=== PATIENT | male | born 1970 | race Hispanic/Latino ===

== ENCOUNTER 2018-03-27 20:31 | Emergency (ER) | payer SELFPAY ==
--- NOTE | 2018-03-27 21:38 | ER ---
Nurse's Notes [facility] Name: Jeevan Killian Sr Age: 47 yrs Sex: Male : 1970 Arrival Date: 03/27/2018 Time: 20:32 Bed 30 Private MD: Diagnosis: Dental caries;Dental root caries Presentation: 03/27 20:36 Presenting complaint: Patient states: Right upper tooth pain after cap fell off 3 days aj ago. Transition of care: patient was not received from another setting of care. Onset of symptoms was March 24, 2018. Risk Assessment: Do you want to hurt yourself or someone else? Patient reports no desire to harm self or others. Initial Sepsis Screen: Does the patient meet any 2 criteria? No. Patient's initial sepsis screen is negative. Does the patient have a suspected source of infection? No. Patient's initial sepsis screen is negative. Care prior to arrival: Medication(s) given: Motrin, 800 mg. 20:36 Method Of Arrival: Ambulatory aj 20:36 Acuity: JOSE 5 aj Triage Assessment: 20:39 General: Appears in no apparent distress. comfortable, Behavior is calm, cooperative, aj appropriate for age. Pain: Complains of pain in upper right second molar. Neuro: Level of Consciousness is awake, alert, obeys commands, Oriented to person, place, time, situation, Appropriate for age. Respiratory: Airway is patent Respiratory effort is even, unlabored, Respiratory pattern is regular, symmetrical. Derm: Skin is intact, is healthy with good turgor, Skin is pink, warm \T\ dry. normal. Historical: - Allergies: 20:39 No Known Allergies; aj - Home Meds: 20:39 Metformin Oral [Active]; rosuvastatin oral oral [Active]; Lisinopril Oral [Active]; aj - PMHx: 20:39 Hypertension; Hyperlipidemia; Diabetes - NIDDM; aj - PSHx: 20:39 None; aj - Immunization history:: Adult Immunizations up to date. - Social history:: Smoking status: Patient uses tobacco products, smokes one-half pack cigarettes per day. - Ebola Screening: : Patient negative for fever greater than or equal to 101.5 degrees Fahrenheit, and additional compatible Ebola Virus Disease symptoms Patient denies exposure to infectious person Patient denies travel to an Ebola-affected area in the 21 days before illness onset No symptoms or risks identified at this time. - Family history:: not pertinent. Screenin:46 Abuse screen: Denies threats or abuse. Denies injuries from another. Nutritional rv screening: No deficits noted. Tuberculosis screening: No symptoms or risk factors identified. Fall Risk None identified. Assessment: 20:45 General: Appears in no apparent distress. comfortable, Behavior is calm, cooperative. rv Pain: Complains of pain in TOOTH[place]HE. Neuro: Level of Consciousness is awake, alert, obeys commands, Oriented to person, place, time, situation. Cardiovascular: Capillary refill < 3 seconds. Respiratory: Airway is patent. GI: No signs and/or symptoms were reported involving the gastrointestinal system. : No signs and/or symptoms were reported regarding the genitourinary system. EENT: No signs and/or symptoms were reported regarding the EENT system. Derm: Skin is intact. Musculoskeletal: No signs and/or symptoms reported regarding the musculoskeletal system. Vital Signs: 20:39 BP 148 / 90; Pulse 102; Resp 17; Temp 97.7; Pulse Ox 99% on R/A; Weight 115.67 kg; aj Height 5 ft. 9 in. (175.26 cm); 20:46 BP 145 / 94; Pulse 109; Pulse Ox 97% ; Pain 7/10; rv 20:39 Body Mass Index 37.66 (115.67 kg, 175.26 cm) aj ED Course: 20:32 Patient arrived in ED. ds1 20:37 Triage completed. aj 20:39 Arm band placed on right wrist. Patient placed in an exam room. aj 20:46 Patient has correct armband on for positive identification. Placed in gown. Bed in low rv position. Call light in reach. Side rails up X 1. Adult w/ patient. Pulse ox on. NIBP on. 21:22 Abraham Simpson MD is Attending Physician. ana 21:36 Efe Rodriguez DDS is Referral Physician. ana 21:46 No provider procedures requiring assistance completed. Patient did not have IV access rv during this emergency room visit. Administered Medications: 21:45 Drug: Clindamycin 300 mg Route: PO; rv 21:46 Follow up: Response: Medication administered at discharge. rv 21:45 Drug: Demerol 50 mg Route: IM; Site: left deltoid; rv 21:46 Follow up: Response: Medication administered at discharge. rv 21:45 Drug: Phenergan 25 mg Route: IM; Site: right deltoid; rv 21:45 Follow up: Response: Medication administered at discharge. rv Outcome: 21:37 Discharge ordered by . ana 21:46 Discharged to home ambulatory. rv 21:46 Condition: stable 21:46 Discharge instructions given to patient, Instructed on discharge instructions, follow up and referral plans. medication usage, Prescriptions given X 2. 21:47 Patient left the ED. rv Signatures: Brianna Mckee, RN RN Abraham Heller MD MD cha Sanford, Demi ds1 Romeo Mcgill RN RN rv
--- NOTE | 2018-03-27 21:38 | EDPHYS ---
Physician Documentation [facility] Name: Jeevan Killian Sr Age: 47 yrs Sex: Male : 1970 Arrival Date: 03/27/2018 Time: 20:32 Bed 30 Private MD: ED Physician Abraham Simpson HPI: 03/27 21:32 This 47 yrs old Male presents to ER via Ambulatory with complaints of Dental ana Pain. 21:32 The patient presents with broken tooth/teeth. The problem is located in the upper right ana second molar. Onset: The symptoms/episode began/occurred 2 day(s) ago. Modifying factors: The symptoms are alleviated by nothing, the symptoms are aggravated by chewing. Associated signs and symptoms: The patient has no apparent associated signs or symptoms. Severity of symptoms: At their worst the symptoms were moderate, in the emergency department the symptoms are unchanged. The patient has experienced similar episodes in the past, a few times. Historical: - Allergies: 20:39 No Known Allergies; aj - Home Meds: 20:39 Metformin Oral [Active]; rosuvastatin oral oral [Active]; Lisinopril Oral [Active]; aj - PMHx: 20:39 Hypertension; Hyperlipidemia; Diabetes - NIDDM; aj - PSHx: 20:39 None; aj - Immunization history:: Adult Immunizations up to date. - Social history:: Smoking status: Patient uses tobacco products, smokes one-half pack cigarettes per day. - Ebola Screening: : Patient negative for fever greater than or equal to 101.5 degrees Fahrenheit, and additional compatible Ebola Virus Disease symptoms Patient denies exposure to infectious person Patient denies travel to an Ebola-affected area in the 21 days before illness onset No symptoms or risks identified at this time. - Family history:: not pertinent. ROS: 21:32 Constitutional: Negative for fever, chills, and weight loss, Eyes: Negative for injury, aan pain, redness, and discharge, Neck: Negative for injury, pain, and swelling, Cardiovascular: Negative for chest pain, palpitations, and edema, Respiratory: Negative for shortness of breath, cough, wheezing, and pleuritic chest pain, Abdomen/GI: Negative for abdominal pain, nausea, vomiting, diarrhea, and constipation, Back: Negative for injury and pain, : Negative for injury, bleeding, discharge, and swelling, MS/Extremity: Negative for injury and deformity, Skin: Negative for injury, rash, and discoloration, Neuro: Negative for headache, weakness, numbness, tingling, and seizure, Psych: Negative for depression, anxiety, suicide ideation, homicidal ideation, and hallucinations, Allergy/Immunology: Negative for hives, rash, and allergies, Endocrine: Negative for neck swelling, polydipsia, polyuria, polyphagia, and marked weight changes, Hematologic/Lymphatic: Negative for swollen nodes, abnormal bleeding, and unusual bruising. 21:32 ENT: Positive for Teeth pain Exam: 21:32 Constitutional: This is a well developed, well nourished patient who is awake, alert, ana and in no acute distress. Head/Face: Normocephalic, atraumatic. Eyes: Pupils equal round and reactive to light, extra-ocular motions intact. Lids and lashes normal. Conjunctiva and sclera are non-icteric and not injected. Cornea within normal limits. Periorbital areas with no swelling, redness, or edema. Neck: Trachea midline, no thyromegaly or masses palpated, and no cervical lymphadenopathy. Supple, full range of motion without nuchal rigidity, or vertebral point tenderness. No Meningismus. Chest/axilla: Normal chest wall appearance and motion. Nontender with no deformity. No lesions are appreciated. Cardiovascular: Regular rate and rhythm with a normal S1 and S2. No gallops, murmurs, or rubs. Normal PMI, no JVD. No pulse deficits. Respiratory: Lungs have equal breath sounds bilaterally, clear to auscultation and percussion. No rales, rhonchi or wheezes noted. No increased work of breathing, no retractions or nasal flaring. Abdomen/GI: Soft, non-tender, with normal bowel sounds. No distension or tympany. No guarding or rebound. No evidence of tenderness throughout. Back: No spinal tenderness. No costovertebral tenderness. Full range of motion. Male : Normal genitalia with no discharge or lesions. Skin: Warm, dry with normal turgor. Normal color with no rashes, no lesions, and no evidence of cellulitis. MS/ Extremity: Pulses equal, no cyanosis. Neurovascular intact. Full, normal range of motion. Neuro: Awake and alert, GCS 15, oriented to person, place, time, and situation. Cranial nerves II-XII grossly intact. Motor strength 5/5 in all extremities. Sensory grossly intact. Cerebellar exam normal. Normal gait. Psych: Awake, alert, with orientation to person, place and time. Behavior, mood, and affect are within normal limits. 21:32 ENT: Mouth: Oral mucosa: moist, Gums: noted to have cellulitis, Tongue: is normal, Posterior pharynx: is normal, airway is patent, Tonsils: are normal in appearance, Uvula: normal, swelling, is not appreciated, erythema, is not appreciated, Dental exam: dental caries, that is moderate, specifically in the upper right first molar (#3). Vital Signs: 20:39 BP 148 / 90; Pulse 102; Resp 17; Temp 97.7; Pulse Ox 99% on R/A; Weight 115.67 kg; aj Height 5 ft. 9 in. (175.26 cm); 20:46 BP 145 / 94; Pulse 109; Pulse Ox 97% ; Pain 7/10; rv 20:39 Body Mass Index 37.66 (115.67 kg, 175.26 cm) aj MDM: 21:23 Patient medically screened. [facility] 21:36 Data reviewed: vital signs, nurses notes. ana Administered Medications: 21:45 Drug: Clindamycin 300 mg Route: PO; rv 21:46 Follow up: Response: Medication administered at discharge. rv 21:45 Drug: Demerol 50 mg Route: IM; Site: left deltoid; rv 21:46 Follow up: Response: Medication administered at discharge. rv 21:45 Drug: Phenergan 25 mg Route: IM; Site: right deltoid; rv 21:45 Follow up: Response: Medication administered at discharge. rv Disposition: 03/27/18 21:37 Discharged to Home. Impression: Dental caries, Dental root caries. - Condition is Stable. - Discharge Instructions: Dental Caries, Adult, Dental Pain, Dental Pain, [id number], Diet and Dental Disease. - Prescriptions for Clindamycin HCl 300 mg Oral Capsule - take 1 capsule by ORAL route every 6 hours for 10 days; 40 capsule. Tylenol- Codeine #3 300-30 mg Oral Tablet - take 2 tablet by ORAL route every 6 hours As needed; 30 tablet. - Medication Reconciliation Form, Thank You Letter, Antibiotic Education, Prescription Opioid Use form. - Follow up: Private Physician; When: 2 - 3 days; Reason: Recheck today's complaints, Continuance of care, Re-evaluation by your physician. Follow up: Efe Rodriguez DDS; When: 1 - 2 days; Reason: Recheck today's complaints, Re-evaluation by your physician. - Problem is new. - Symptoms have improved. Signatures: Brianna Mckee RN RN Abraham Heller MD MD cha Vicente, Ronaldo, RN RN rv Corrections: (The following items were deleted from the chart) 21:47 21:37 03/27/2018 21:37 Discharged to Home. Impression: Dental caries; Dental root rv caries. Condition is Stable. Forms are Medication Reconciliation Form, Thank You Letter, Antibiotic Education, Prescription Opioid Use. Follow up: Private Physician; When: 2 - 3 days; Reason: Recheck today's complaints, Continuance of care, Re-evaluation by your physician. Follow up: Efe Rodriguez; When: 1 - 2 days; Reason: Recheck today's complaints, Re-evaluation by your physician. Problem is new. Symptoms have improved. ana
[2018-03-27] MEDS ORDERED: MEPERIDINE HCL 50 MG/ML AMP ONE (21:40)
[2018-03-27] MEDS ORDERED: PROMETHAZINE 25 MG/ML VIAL ONE (21:41)
[2018-03-27] MEDS ORDERED: CLINDAMYCIN HCL 150 MG CAP ONE (21:41)
== END 2018-03-27 21:47 | disposition home or self-care (01) ==
LOC: ER 20:31
DX: K02.7 Dental root caries (principal); I10 Essential (primary) hypertension; E11.9 Type 2 diabetes mellitus without complications; E78.5 Hyperlipidemia, unspecified; F17.210 Nicotine dependence, cigarettes, uncomplicated
CPT/HCPCS: 96372; 99283; J2175; J2550